=== PATIENT | male | born 1965 | race African-American/Black ===

== ENCOUNTER 2018-09-18 01:45 | Emergency (ER) | payer MEDICARE, OTHER ==
[~2018-09-18] VITALS: Ht 177.8 cm; Wt 81.6 kg
[~2018-09-18 01:45] MED LIST: ARIP20TA4 PO; DRON2.5C PO; MIRT45TA3 PO; OXYC80TA40 PO; PANT40SU PO
--- NOTE | 2018-09-18 02:02 | NUR ---
PT BIBSELF C/O +SI, +HI, -AUDITORY HALLUCINATIONS, -PLAN. PT AMBULATORY WITH STEADY GAIT. NAD NOTED. RESP EVEN AND UNLABORED. PT DENIES PAIN AT THIS TIME. PT IN BED 13. WILL CONTINUE TO MONITOR.
--- NOTE | 2018-09-18 02:05 | NUR ---
URINE COLLECTED AND SENT TO LAB
--- NOTE | 2018-09-18 02:10 | NUR ---
PHLEB AT BEDSIDE FOR LAB DRAW
[2018-09-18 02:11] LABS: APPEARANCE,URINE Clear (CLEAR); BILIRUBIN,URINE Negative (NEGATIVE); BLOOD, URINE Negative Ery/uL (NEGATIVE); COLOR,URINE Yellow (YELLOW); KETONES,URINE Negative (NEGATIVE); LEUKOCYTE ESTERASE ,URINE Negative (NEGATIVE); NITRITE, URINE Negative (NEGATIVE); PH,URINE 6.5 (5.0-8.0); PROTEIN,URINE Negative (NEGATIVE); UGLUCOSE Negative (NEGATIVE); UROBILINOGEN,URINE 0.2 EU/dL (0.2)
[2018-09-18 02:20] LABS: BASOPHILS # (AUTO) 0.1 /CMM (0.0-0.2); EOSINOPHILS % (AUTO) 5.8 % (0.0-6.0); HEMATOCRIT 37 % (39-51); HEMOGLOBIN 12.3 g/dL (13.5-17.5); LYMPHOCYTES # (AUTO) 2.3 /CMM (0.8-4.8); LYMPHOCYTES % (AUTO) 37.4 % (20.0-44.0); MEAN CORPUSCULAR HGB CONC 33 g/dl (31.0-36.0); MEAN CORPUSCULAR VOLUME 91 fL (80-96); MONOCYTES # (AUTO) 0.5 /CMM (0.1-1.30); NEUTROPHILS % (AUTO) 47.8 % (43.0-81.0); PLATELET COUNT (AUTO) 376 /CMM (150-450); RED BLOOD CELL COUNT(AUTO) 4.05 MIL/uL (4.5-6.0); WHITE BLOOD COUNT (AUTO) 6.3 K/uL (4.3-11.0)
[2018-09-18 02:28] LABS: CALCIUM, SERUM 8.4 mg/dL (8.5-10.1); CARBON DIOXIDE 30 mmol/L (21-32); CHLORIDE 103 mmol/L (98-107); GLUCOSE 92 mg/dL (74-106); POTASSIUM 3.6 mmol/L (3.5-5.1); SODIUM SERUM 140 mmol/L (136-145); UREA NITROGEN, BLOOD 7 mg/dL (7-18)
[2018-09-18 02:45] LABS: ACETAMINOPHEN 0 ug/ml (10-30); ALANINE AMINOTRANSFERASE 17 U/L (12-78); ALBUMIN 3.2 g/dL (3.4-5.0); ALCOHOL, BLOOD < 3 mg/dL (0-0); ALKALINE PHOSPHATASE 94 U/L (46-116); ASPARTATE AMINOTRANSFERASE 18 U/L (15-37); BILIRUBIN,DIRECT 0.1 mg/dL (0.0-0.2); BILIRUBIN,TOTAL 0.2 mg/dL (0.2-1.0); SALICYLATE 3.3 mg/dL (2.8-20.0); TOTAL PROTEIN, SERUM 6.7 g/dL (6.4-8.2)
--- NOTE | 2018-09-18 03:16 | NUR ---
PT DENIES HI. +SI WITH PLAN TO GAS HIMSELF.
--- NOTE | 2018-09-18 05:05 | NUR ---
PT ACCEPTED TO [facility] BY DR GARCIA. # FOR REPORT [phone]
--- NOTE | 2018-09-18 05:08 | NUR ---
[facility] CALLED FOR TRANSPORT. ETA 45 MIN. TRIP [phone]
--- NOTE | 2018-09-18 05:21 | NUR ---
REPORT GIVEN TO DAVID CALI AT [facility]
[2018-09-18 05:52] VITALS: BP 137/97
== END 2018-09-18 05:54 ==
LOC: ER 01:45
DX: R45.851 Suicidal ideations (principal); G89.29 Other chronic pain; F17.200 Nicotine dependence, unspecified, uncomplicated
CPT/HCPCS: 36415; 80048; 80076; 80305; 80307; 80329; 81001; 85025; 99285; G0480; 81000-TC